=== PATIENT | male | born 1955 ===

== ENCOUNTER → 2019-09-25 | Outpatient (CLI) | payer OTHER ==
--- NOTE | 2019-09-25 16:30 | KCIC ---
EXAM: CT left shoulder DATE: 09/25/2019 12:30 PM COMPARISON: No prior INDICATION: Left shoulder arthroplasty preoperative planning. Left shoulder pain. Left shoulder osteoarthritis TECHNIQUE: CT of the left shoulder was performed without IV contrast using [employer] protocol. PQRS compliance statement - One or more of the following individualized dose reduction techniques were utilized for this study: 1. Automated exposure control 2. Adjustment of the mA and/or kV according to patient size 3. Use of iterative reconstruction technique FINDINGS: There is moderate glenohumeral joint space loss. Subtle subchondral sclerosis with mild cystic change anteriorly. Marginal osteophytosis is present. No definite osteochondral bodies. Humerus is high riding with remodeling of the distal acromion consistent with full-thickness rotator cuff tear. Moderate to severe fatty atrophy of the supraspinatus and infraspinatus muscle bellies. Negative acute fracture or dislocation. There is acromioclavicular osteoarthritis. Multiple old left rib fractures are seen posteriorly, healed. Linear dependent opacities left lower lobe likely atelectasis. Large hiatal hernia partially profiled. Mild flattening of the glenoid. Glenoid bone stock inferiorly measures 3 cm, centrally measures 3.2 cm and superiorly measures approximately 2.6 cm. IMPRESSION: Left glenohumeral joint osteoarthritis with glenoid bone stock as above. Electronically signed by: Drew Kurtz MD (09/25/2019 4:27 PM) [id number]
== END | disposition home or self-care (01) ==
LOC: KCIC CT 11:03
PROVIDERS: ATTEND Orthopaedic Surgery
DX: M19.012 Primary osteoarthritis, left shoulder (principal); M25.712 Osteophyte, left shoulder; M62.58 Muscle wasting and atrophy, not elsewhere classified, other site; K44.9 Diaphragmatic hernia without obstruction or gangrene; Z87.81 Personal history of (healed) traumatic fracture
CPT/HCPCS: 73200